=== PATIENT | male | born 1970 | race Asian ===

== ENCOUNTER 2018-11-26 19:49 | Inpatient (IN) | payer OTHER ==
[~2018-11-26] VITALS: Ht 175.3 cm; Wt 79.2 kg
[~2018-11-26 19:49] MED LIST: OMEP40CA6 PO; ZOLP10TA PO
--- NOTE | 2018-11-26 20:10 | NUR ---
PT TO ROOM PLACED IN A GOWN AND AWAITING ERP AND ORDERS.
[2018-11-26] MEDS ORDERED: ONDANSETRON 2MG/ML, 2ML IVPush ONE (20:30)
[2018-11-26] MEDS ORDERED: HYDROmorphone 2 MG/ML, 1ML IVPush PRN (20:30)
[2018-11-26] MEDS ORDERED: SODIUM CHLORIDE FLUSH 10ML SYR IVF ONE ×2 (20:30)
[2018-11-26] MEDS ORDERED: SODIUM CHLORIDE 0.9% 1,000ML IVBOLUS ONE (20:30)
[2018-11-26 20:31] LABS: MEAN CORPUSCULAR HEMOGLOBIN 30.6 pg (27.5-34.5); MEAN CORPUSCULAR HGB CONC 33.2 g/dL (33.2-36.2); MEAN CORPUSCULAR VOLUME 92.1 fL (81-97); MEAN PLATELET VOLUME 7.6 fL (7.4-10.4); PLATELET COUNT 288 x10^3/uL (130-400); RED BLOOD COUNT 5.85 x10^6/uL (4.38-5.82); RED CELL DISTRIBUTION WIDTH 12.4 % (9.4-14.8)
[2018-11-26] MEDS ORDERED: ONDANSETRON 2MG/ML, 2ML ONE (20:39)
[2018-11-26] MEDS ORDERED: HYDROmorphone 2 MG/ML, 1ML ONE (20:40)
[2018-11-26 20:42] LABS: ALANINE AMINOTRANSFERASE 64 U/L (12-78); ALBUMIN 4.8 g/dL (3.4-5.0); ANION GAP 8 mmol/L (5-15); CALCIUM 10.3 mg/dL (8.5-10.1); CHLORIDE 99 mmol/L (98-107); CREATININE 1.46 mg/dL (0.7-1.3)
[2018-11-26 20:45] LABS: ALKALINE PHOSPHATASE 54 U/L (45-117); BILIRUBIN,TOTAL 0.7 mg/dL (0.2-1.0)
[2018-11-26 20:57] LABS: BASOPHILS # (AUTO) 0.02 x10^3/uL (0-0.1); BASOPHILS % (AUTO) 0 % (0-1); EOSINOPHILS # (AUTO) 0.11 x10^3/uL (0-0.4); EOSINOPHILS % (AUTO) 1 % (1-7); LYMPHOCYTES # (AUTO) 1.53 x10^3/uL (1-3.4); LYMPHOCYTES % (AUTO) 10 % (22-44); MD SCAN; MONOCYTES # (AUTO) 0.87 x10^3/uL (0.2-0.8); MONOCYTES % (AUTO) 6 % (2-9); NEUTROPHILS # (AUTO) 13.28 x10^3/uL (1.8-6.8); NEUTROPHILS % (AUTO) 84 % (42-75)
--- NOTE | 2018-11-26 21:03 | NUR ---
PT MEDICATED AND TO CT SCAN AWAITING RESULTS. PT REPORTS IMPROVED PAIN LVL.
[2018-11-26] MEDS ORDERED: OMNIPAQUE 350 MG/ML, 100ML BOTTLE ONE (21:11)
--- NOTE | 2018-11-26 22:29 | NUR ---
REPORT CALLED TO FLOOR PT RTG.
[2018-11-26 22:54] VITALS: BP 138/71
[2018-11-26] MEDS ORDERED: ONDANSETRON 2MG/ML, 2ML IVPush PRN (23:00)
[2018-11-26] MEDS: HYDROmorphone 2 MG/ML, 1ML IVPush PRN (23:54)
[2018-11-26] MEDS: HEPARIN 5,000 UNITS/ML, 1ML SQ SCH (23:54)
[2018-11-26] MEDS: BISACODYL 10 MG SUPP PR SCH (23:56)
[2018-11-27 00:05] VITALS: BP 138/71
[2018-11-27] MEDS: SODIUM CHLORIDE 0.9% 1,000 ML IV SCH ×3 (00:15→22:10)
[2018-11-27 00:39] LABS: MICROSCOPIC NOT IND
[2018-11-27 00:44] LABS: CULTURE INDICATED? NO
[2018-11-27 05:45] LABS: BASOPHILS # (AUTO) 0.02 x10^3/uL (0-0.1); BASOPHILS % (AUTO) 0 % (0-1); EOSINOPHILS # (AUTO) 0.05 x10^3/uL (0-0.4); EOSINOPHILS % (AUTO) 1 % (1-7); LYMPHOCYTES # (AUTO) 1.11 x10^3/uL (1-3.4); LYMPHOCYTES % (AUTO) 13 % (22-44); MD NO; MEAN CORPUSCULAR HEMOGLOBIN 30.4 pg (27.5-34.5); MEAN CORPUSCULAR HGB CONC 33.2 g/dL (33.2-36.2); MEAN CORPUSCULAR VOLUME 91.5 fL (81-97); MEAN PLATELET VOLUME 7.7 fL (7.4-10.4); MONOCYTES # (AUTO) 0.48 x10^3/uL (0.2-0.8); MONOCYTES % (AUTO) 6 % (2-9); NEUTROPHILS # (AUTO) 6.83 x10^3/uL (1.8-6.8); NEUTROPHILS % (AUTO) 80 % (42-75); PLATELET COUNT 244 x10^3/uL (130-400); RED BLOOD COUNT 4.72 x10^6/uL (4.38-5.82); RED CELL DISTRIBUTION WIDTH 12.6 % (9.4-14.8)
[2018-11-27 05:49] LABS: ALANINE AMINOTRANSFERASE 45 U/L (12-78); ALBUMIN 3.8 g/dL (3.4-5.0); ANION GAP 5 mmol/L (5-15); CALCIUM 8.4 mg/dL (8.5-10.1); CHLORIDE 108 mmol/L (98-107); CREATININE 1.01 mg/dL (0.7-1.3)
[2018-11-27 05:51] LABS: ALKALINE PHOSPHATASE 45 U/L (45-117); BILIRUBIN,TOTAL 0.7 mg/dL (0.2-1.0); TOTAL PROTEIN 6.8 g/dL (6.4-8.2)
[2018-11-27] MEDS: HEPARIN 5,000 UNITS/ML, 1ML SQ SCH ×3 (09:05→23:44)
[2018-11-27 09:59] VITALS: BP 111/59
[2018-11-27] MEDS: BISACODYL 10 MG SUPP PR SCH (10:49)
[2018-11-27] MEDS: HYDROmorphone 2 MG/ML, 1ML IVPush PRN (10:49)
[2018-11-27] MEDS ORDERED: METOCLOPRAMIDE 5 MG/ML, 2ML IVPush PRN (12:00)
[2018-11-27 17:26] VITALS: BP 116/68
[2018-11-27 19:49] VITALS: BP 120/72
[2018-11-28 01:08] VITALS: BP 120/73
[2018-11-28 05:42] LABS: BASOPHILS # (AUTO) 0.01 x10^3/uL (0-0.1); BASOPHILS % (AUTO) 0 % (0-1); EOSINOPHILS # (AUTO) 0.13 x10^3/uL (0-0.4); EOSINOPHILS % (AUTO) 2 % (1-7); LYMPHOCYTES # (AUTO) 1.28 x10^3/uL (1-3.4); LYMPHOCYTES % (AUTO) 18 % (22-44); MD NO; MEAN CORPUSCULAR HEMOGLOBIN 30.1 pg (27.5-34.5); MEAN CORPUSCULAR HGB CONC 32.7 g/dL (33.2-36.2); MEAN CORPUSCULAR VOLUME 92.1 fL (81-97); MEAN PLATELET VOLUME 7.6 fL (7.4-10.4); MONOCYTES # (AUTO) 0.51 x10^3/uL (0.2-0.8); MONOCYTES % (AUTO) 7 % (2-9); NEUTROPHILS # (AUTO) 5.32 x10^3/uL (1.8-6.8); NEUTROPHILS % (AUTO) 73 % (42-75); PLATELET COUNT 233 x10^3/uL (130-400); RED BLOOD COUNT 4.68 x10^6/uL (4.38-5.82); RED CELL DISTRIBUTION WIDTH 12.8 % (9.4-14.8)
[2018-11-28 05:47] LABS: CALCIUM 8.1 mg/dL (8.5-10.1); CHLORIDE 109 mmol/L (98-107)
[2018-11-28 05:53] LABS: ALANINE AMINOTRANSFERASE 35 U/L (12-78); ALBUMIN 3.4 g/dL (3.4-5.0); ALKALINE PHOSPHATASE 37 U/L (45-117); ANION GAP 8 mmol/L (5-15); BILIRUBIN,TOTAL 0.8 mg/dL (0.2-1.0); CREATININE 0.94 mg/dL (0.7-1.3); TOTAL PROTEIN 6.5 g/dL (6.4-8.2)
[2018-11-28 07:24] VITALS: BP 123/74
[2018-11-28] MEDS: SODIUM CHLORIDE 0.9% 1,000 ML IV SCH (07:24)
[2018-11-28] MEDS: BISACODYL 10 MG SUPP PR SCH (07:25)
[2018-11-28] MEDS: HEPARIN 5,000 UNITS/ML, 1ML SQ SCH ×2 (07:25→16:52)
[2018-11-28 12:51] VITALS: BP 118/67
[2018-11-28] MEDS ORDERED: POTASSIUM CHLORIDE 20 MEQ TAB.ER.PRT PO ONE (13:30)
[2018-11-28 19:09] VITALS: BP 114/84
[2018-11-29] MEDS: HEPARIN 5,000 UNITS/ML, 1ML SQ SCH ×2 (00:10→07:58)
[2018-11-29 00:45] VITALS: BP 123/81
[2018-11-29 06:02] LABS: ANION GAP 6 mmol/L (5-15); CALCIUM 8.4 mg/dL (8.5-10.1); CHLORIDE 110 mmol/L (98-107); CREATININE 0.99 mg/dL (0.7-1.3)
[2018-11-29 07:13] VITALS: BP 114/83
[2018-11-29] MEDS: BISACODYL 10 MG SUPP PR SCH (07:58)
[2018-11-29 14:01] VITALS: BP 138/95
== END 2018-11-29 13:57 | disposition left against medical advice (07) | DRG 390 ==
LOC: ED 22:10 → EDIP 22:18 → 4NOR 22:34
PROVIDERS: ADMIT Internal Medicine; ATTEND Internal Medicine
DX: K56.51 Intestinal adhesions [bands], with partial obstruction (principal); D72.829 Elevated white blood cell count, unspecified; K21.9 Gastro-esophageal reflux disease without esophagitis; I10 Essential (primary) hypertension; Z80.0 Family history of malignant neoplasm of digestive organs; Z80.3 Family history of malignant neoplasm of breast; Z85.048 Personal history of other malignant neoplasm of rectum, rectosigmoid junction, and anus; Z87.11 Personal history of peptic ulcer disease; Z90.49 Acquired absence of other specified parts of digestive tract
CPT/HCPCS: 36415; 74018; 74177; 74250; 80048; 80053; 81003; 83605; 83690; 83735; 85025; 96374; 96375; 99285; G0378; J1170; J1644; J2405; Q9967; J7030